=== PATIENT | male | born 1965 | race Caucasian/White ===

== ENCOUNTER 2016-08-25 08:03 | Emergency (ER) | payer OTHER ==
[~2016-08-25] VITALS: Ht 177.8 cm; Wt 68.0 kg
[~2016-08-25 08:03] MED LIST: ATROPINE 1100 DROP/5 BOTH EYES; ATROPINE 1100 DROP/5 LEFT EYE; BETIMOL 0.100 DROP/5 LEFT EYE; BUMEX2 MG PO; CALCIUM ACETAT667 MG PO; CARVEDILOL12.5 MG PO; COMBIGAN O20 DROP/5 LEFT EYE; DORZOLAMIDE HCL10 ML LEFT EYE; GARAMYCIN5 M1 BOTH EYES; GLIPIZIDE5 MG PO; LOPRESSOR50 MG PO; LOSARTAN POTASS50 MG PO; NIFEDIPINE ER60 MG PO; PRED FORTE100 DROP/5 BOTH EYES; PREDNISOLONE AC15 ML LEFT EYE; PROCARDIA XL60 MG PO; ROXICODONE5 MG PO; TYLENOL EXTRA500 MG PO; TYLENOL REGULA325 MG PO
[2016-08-25 08:38] LABS: EOSINOPHIL COUNT 0.3 K/uL (0-0.3); HEMATOCRIT 20.9 % (38.0-50.0); IMMATURE GRANULOCYTE (%) 0.1 % (0.0-0.7); IMMATURE GRANULOCYTE COUNT 0.1 K/uL; LYMPHOCYTE COUNT 1.7 K/uL (1.0-2.8); MCH 30.2 PG (29.0-34.0); MCV 88.9 FL (86-99); MEAN PLAT.VOLUME 8.6 uM^3 (9.0-12.4); MONOCYTE (%) 5.1 % (3-12); MONOCYTE COUNT 0.4 K/uL (0-0.8); NEUTROPHIL (%) 70.4 % (45-76); NEUTROPHIL COUNT 5.9 K/uL (1.8-6.4); PLATELET COUNT 312 K/uL (156-360); RBC DIS.WIDTH-CV 11.8 % (11.8-14.6); RBC DIS.WIDTH-SD 36.6 % (39-53); RED BLOOD COUNT 2.35 M/uL (4.00-5.50); WHITE BLOOD COUNT 8.4 K/uL (4.1-10.2)
[2016-08-25 08:49] LABS: CHLORIDE 104 mEq/L (99-109); POTASSIUM 5.2 mEq/L (3.7-5.4); SODIUM 143 mEq/L (136-147)
[2016-08-25 08:52] LABS: GLUCOSE 151 mg/dL (70-99)
[2016-08-25 08:53] LABS: ANION GAP 18 MEQ/L (2-14)
[2016-08-25 08:54] LABS: TOTAL BILIRUBIN 0.6 mg/dL (0.0-1.0)
[2016-08-25 08:55] LABS: ALKALINE PHOSPHATASE 72 IU/L (3-129); GFR ESTIMATE (CALCULATED) 4 mL/min/
[2016-08-25 09:13] LABS: UREA NITROGEN (BUN) 113 mg/dL (9-23)
[2016-08-25 10:58] VITALS: BP 188/88
== END 2016-08-25 11:01 | disposition home or self-care (01) ==
LOC: EME 08:03
PROVIDERS: Physician Assistant
DX: N18.6 End stage renal disease (principal); E11.9 Type 2 diabetes mellitus without complications; I10 Essential (primary) hypertension; Z99.2 Dependence on renal dialysis
CPT/HCPCS: 71020; 80053; 81003; 85025; 93005; 99281; 99284

== ENCOUNTER 2016-08-27 14:56 | Inpatient (IN) | payer OTHER ==
[~2016-08-27] VITALS: Ht 177.8 cm; Wt 68.6 kg
[2016-08-27 16:22] LABS: HEMATOCRIT 21.5 % (38.0-50.0); MCH 30.3 PG (29.0-34.0); MCHC 34.4 G/DL (30.0-36.0); MCV 88.1 FL (86-99); MEAN PLAT.VOLUME 8.5 uM^3 (9.0-12.4); PLATELET COUNT 259 K/uL (156-360); RBC DIS.WIDTH-CV 11.9 % (11.8-14.6); RBC DIS.WIDTH-SD 36.2 % (39-53); RED BLOOD COUNT 2.44 M/uL (4.00-5.50); WHITE BLOOD COUNT 8.4 K/uL (4.1-10.2)
[2016-08-27 16:33] LABS: CHLORIDE 104 mEq/L (99-109); POTASSIUM 5.8 mEq/L (3.7-5.4); SODIUM 139 mEq/L (136-147)
[2016-08-27 16:34] LABS: GLUCOSE 108 mg/dL (70-99)
[2016-08-27 16:36] LABS: ANION GAP 21 MEQ/L (2-14)
[2016-08-27 16:38] LABS: GFR ESTIMATE (CALCULATED) 3 mL/min/
[2016-08-27 16:40] LABS: UREA NITROGEN (BUN) 141 mg/dL (9-23)
[2016-08-27] MEDS ORDERED: FOLIC ACID1 MG PO (17:07)
[2016-08-27] MEDS ORDERED: BLOOD PRESSURE MED (17:09)
[2016-08-27 17:32] LABS: ADD MIUA? YES; BILIRUBIN NEGATIVE; BLOOD MODERATE; COLOR YELLOW ((YELLOW)); GLUCOSE (STRIP) 250; KETONES NEGATIVE; LEUKOCYTES NEGATIVE; NITRITE NEGATIVE; PH, URINE 6.5 (5-8); PROTEIN (STRIP) >=300; SPECIFIC GRAVITY 1.019 (1.000-1.030); UROBILINOGEN 0.2 MG/DL (0.2-1.0)
[2016-08-27 17:51] LABS: WHITE BLOOD CELLS NONE SEEN /HPF (0-5)
[2016-08-27 17:52] LABS: BACTERIA RARE /HPF; CASTS PRESENT /LPF; CRYSTALS NONE SEEN; EPITHELIAL CELLS NONE SEEN /HPF; MUCUS NONE SEEN /LPF; UCUL ADDED? NO
[2016-08-27 17:53] LABS: COARSE GRANULAR CASTS RARE /LPF
[2016-08-27 19:30] VITALS: BP 223/103
[2016-08-27 23:00] VITALS: BP 201/87
[2016-08-27 23:28] LABS: POINT-OF-CARE METER ID UU13113700
[2016-08-28 05:15] VITALS: BP 191/4
[2016-08-28 07:06] LABS: ALKALINE PHOSPHATASE 51 IU/L (3-129); ANION GAP 19 MEQ/L (2-14); CHLORIDE 103 MEQ/L (99-109); GFR ESTIMATE (CALCULATED) 3 mL/min/; GLUCOSE 119 mg/dL (70-99); POTASSIUM 4.9 MEQ/L (3.7-5.4); SAMPLE HEMOLYSIS CHECK 0; SAMPLE ICTERIC CHECK 0; SAMPLE LIPEMIA CHECK 0; SODIUM 138 MEQ/L (136-147); TOTAL BILIRUBIN 0.3 MG/DL (0.0-1.0); UREA NITROGEN (BUN) 135 mg/dL (9-23)
[2016-08-28 07:25] LABS: HEMATOCRIT 16.9 % (38.0-50.0); MCH 30.4 PG (29.0-34.0); MCHC 34.9 G/DL (30.0-36.0); MCV 87.4 FL (86-99); MEAN PLAT.VOLUME 8.8 uM^3 (9.0-12.4); PLATELET COUNT 199 K/uL (156-360); RBC DIS.WIDTH-CV 12.8 % (11.8-14.6); RBC DIS.WIDTH-SD 40.7 % (39-53); WHITE BLOOD COUNT 6.4 K/uL (4.1-10.2)
[2016-08-28 07:30] LABS: RED BLOOD COUNT 1.94 M/uL (4.00-5.50)
[2016-08-28 08:42] LABS: IRON 82 MCG/DL (35-150)
[2016-08-28 10:31] LABS: HPCA INDEX 0.29
[2016-08-28 10:32] LABS: AHBS INDEX 3.79; ANTI-HEPATITIS B CORE (TOTAL) Nonreactive; HBCT INDEX 0.45; HEPATITIS B SURFACE ANTIBODY Nonreactive
[2016-08-28 12:17] VITALS: BP 228/82
[2016-08-28 13:33] VITALS: BP 176/70
[2016-08-28 15:38] VITALS: BP 176/72
[2016-08-28 18:33] LABS: ANION GAP 13 MEQ/L (2-14); CHLORIDE 98 MEQ/L (99-109); SAMPLE HEMOLYSIS CHECK 0; SAMPLE ICTERIC CHECK 0; SAMPLE LIPEMIA CHECK 0; SODIUM 140 MEQ/L (136-147)
[2016-08-28 18:35] LABS: GFR ESTIMATE (CALCULATED) 7 mL/min/; GLUCOSE 205 mg/dL (70-99); POTASSIUM 3.7 MEQ/L (3.7-5.4); UREA NITROGEN (BUN) 46 mg/dL (9-23)
[2016-08-28 18:41] LABS: EOSINOPHIL (%) 1.2 % (0-5); EOSINOPHIL COUNT 0.1 K/uL (0-0.3); HEMATOCRIT 25.9 % (38.0-50.0); IMMATURE GRANULOCYTE (%) 0.3 % (0.0-0.7); LYMPHOCYTE COUNT 1.2 K/uL (1.0-2.8); MCH 30.3 PG (29.0-34.0); MCHC 34.7 G/DL (30.0-36.0); MCV 87.2 FL (86-99); MEAN PLAT.VOLUME 9.1 uM^3 (9.0-12.4); MONOCYTE (%) 3.7 % (3-12); MONOCYTE COUNT 0.3 K/uL (0-0.8); NEUTROPHIL (%) 78.2 % (45-76); NEUTROPHIL COUNT 5.9 K/uL (1.8-6.4); PLATELET COUNT 223 K/uL (156-360); RBC DIS.WIDTH-CV 12.9 % (11.8-14.6); RBC DIS.WIDTH-SD 40.7 % (39-53); RED BLOOD COUNT 2.97 M/uL (4.00-5.50); WHITE BLOOD COUNT 7.5 K/uL (4.1-10.2)
[2016-08-28 21:45] VITALS: BP 141/65
[2016-08-28 23:42] VITALS: BP 151/72
[2016-08-29 04:24] VITALS: BP 146/64
[2016-08-29 06:09] LABS: EOSINOPHIL (%) 2.9 % (0-5); EOSINOPHIL COUNT 0.2 K/uL (0-0.3); HEMATOCRIT 23.7 % (38.0-50.0); IMMATURE GRANULOCYTE (%) 0.1 % (0.0-0.7); LYMPHOCYTE COUNT 1.8 K/uL (1.0-2.8); MCH 30.6 PG (29.0-34.0); MCV 87.5 FL (86-99); MEAN PLAT.VOLUME 8.8 uM^3 (9.0-12.4); MONOCYTE (%) 6.2 % (3-12); MONOCYTE COUNT 0.5 K/uL (0-0.8); NEUTROPHIL (%) 66.7 % (45-76); NEUTROPHIL COUNT 5.1 K/uL (1.8-6.4); PLATELET COUNT 210 K/uL (156-360); RBC DIS.WIDTH-CV 13.2 % (11.8-14.6); RBC DIS.WIDTH-SD 42.1 % (39-53); RED BLOOD COUNT 2.71 M/uL (4.00-5.50); WHITE BLOOD COUNT 7.6 K/uL (4.1-10.2)
[2016-08-29 06:35] LABS: ANION GAP 13 MEQ/L (2-14); CHLORIDE 99 MEQ/L (99-109); GFR ESTIMATE (CALCULATED) 6 mL/min/; GLUCOSE 132 mg/dL (70-99); POTASSIUM 4.1 MEQ/L (3.7-5.4); SAMPLE HEMOLYSIS CHECK 0; SAMPLE ICTERIC CHECK 0; SAMPLE LIPEMIA CHECK 0; SODIUM 140 MEQ/L (136-147); UREA NITROGEN (BUN) 57 mg/dL (9-23)
[2016-08-29 08:01] VITALS: BP 153/70
[2016-08-29 08:11] LABS: POINT-OF-CARE METER ID UU14162513
[2016-08-29 11:29] VITALS: BP 184/82
[2016-08-29 12:45] LABS: POINT-OF-CARE METER ID UU14162513
[2016-08-29] MEDS ORDERED: NOVOLOG PE100 UNITS/ SC (12:48)
[2016-08-29] MEDS ORDERED: LABETALOL HCL200 MG PO (12:48)
[2016-08-29] MEDS ORDERED: NIFEDIPINE ER30 MG PO (12:48)
== END 2016-08-29 17:01 | disposition home health service (06) | DRG 682 ==
LOC: EME 14:56 → EDOF 17:58 → 5WEST 17:58 → EDOF 17:58 → 5WEST 19:02
PROVIDERS: Family Medicine; Hospitalist; Internal Medicine Nephrology; Nurse Practitioner Adult Health
PROC: 5A1D00Z (ICD-10-PCS; principal; 2016-08-28)
PROC: 30233N1 Transfusion of Nonautologous Red Blood Cells into Peripheral Vein, Percutaneous Approach (ICD-10-PCS; 2016-08-28)
DX: I12.0 Hypertensive chronic kidney disease with stage 5 chronic kidney disease or end stage renal disease (principal); N18.6 End stage renal disease; E87.5 Hyperkalemia; E11.21 Type 2 diabetes mellitus with diabetic nephropathy; E11.22 Type 2 diabetes mellitus with diabetic chronic kidney disease; Z99.2 Dependence on renal dialysis; D63.1 Anemia in chronic kidney disease; E11.65 Type 2 diabetes mellitus with hyperglycemia; E11.319 Type 2 diabetes mellitus with unspecified diabetic retinopathy without macular edema; H40.24 Residual stage of angle-closure glaucoma; H54.8 Legal blindness, as defined in USA
CPT/HCPCS: 80048; 80048 91; 80053; 81003; 82948; 83540; 84466; 85025; 85027; 86704; 86706; 86803; 86850; 86900; 86901; 86920; 87340; 99281; 99285; G0378; J0881; J1815; P9016

== ENCOUNTER 2016-09-28 07:43 | Day surgery (SDC) | payer OTHER ==
[~2016-09-28] VITALS: Ht 177.8 cm; Wt 63.0 kg
[~2016-09-28 07:43] MED LIST changes: +BENICAR5 MG PO; +BLOOD PRESSURE MED; +FOLIC ACID1 MG PO; +LABETALOL HCL200 MG PO; +NIFEDIPINE ER30 MG PO; +NOVOLOG PE100 UNITS/ SC; +VITAMIN D PO; +[UNRECOGNIZED DRUG - OTHER] PO
[2016-09-28 08:21] VITALS: BP 140/65
[2016-09-28 08:23] LABS: HEMATOCRIT 39.5 % (38.0-50.0); MCH 30.6 PG (29.0-34.0); MCHC 32.2 G/DL (30.0-36.0); MCV 95.2 FL (86-99); MEAN PLAT.VOLUME 8.8 uM^3 (9.0-12.4); PLATELET COUNT 246 K/uL (156-360); RBC DIS.WIDTH-CV 14.5 % (11.8-14.6); RBC DIS.WIDTH-SD 50.2 % (39-53); RED BLOOD COUNT 4.15 M/uL (4.00-5.50); WHITE BLOOD COUNT 7.2 K/uL (4.1-10.2)
[2016-09-28 08:41] LABS: ANION GAP 12 MEQ/L (2-14); CHLORIDE 89 MEQ/L (99-109); POTASSIUM 4.4 MEQ/L (3.7-5.4); SAMPLE HEMOLYSIS CHECK 0; SAMPLE ICTERIC CHECK 0; SAMPLE LIPEMIA CHECK 0; SODIUM 134 MEQ/L (136-147)
[2016-09-28 08:46] LABS: GFR ESTIMATE (CALCULATED) 8 mL/min/; GLUCOSE 147 mg/dL (70-99); UREA NITROGEN (BUN) 33 mg/dL (9-23)
[2016-09-28 09:29] LABS: METH RESISTANT S AUREUS PCR NEGATIVE (NEGATIVE)
[2016-09-28 09:31] LABS: PROBE CHECK PASS; SPECIMEN PROCESSING CONTROL PASS
[2016-09-28 11:09] LABS: POINT-OF-CARE METER ID UU13113675
[2016-09-28 11:44] VITALS: BP 173/80
[2016-09-28 12:58] VITALS: BP 137/71
== END 2016-09-28 13:06 | disposition home or self-care (01) ==
LOC: SDC 07:43
PROVIDERS: Surgery
PROC: 05V Upper Veins, Restriction (ICD-10-PCS; principal; 2016-09-28)
PROC: 02PYX3Z Removal of Infusion Device from Great Vessel, External Approach (ICD-10-PCS; principal; 2016-09-28)
DX: T82.898A Other specified complication of vascular prosthetic devices, implants and grafts, initial encounter (principal); Y83.2 Surgical operation with anastomosis, bypass or graft as the cause of abnormal reaction of the patient, or of later complication, without mention of misadventure at the time of the procedure; I12.0 Hypertensive chronic kidney disease with stage 5 chronic kidney disease or end stage renal disease; E11.22 Type 2 diabetes mellitus with diabetic chronic kidney disease; N18.6 End stage renal disease; Z99.2 Dependence on renal dialysis; E07.9 Disorder of thyroid, unspecified; H54.0 Blindness, both eyes; Z79.84 Long term (current) use of oral hypoglycemic drugs; Z87.891 Personal history of nicotine dependence; Z88.6 Allergy status to analgesic agent
CPT/HCPCS: 80048; 82948; 85027; 87641; 93005; J0131; J0690; J1170; J1644; J2250; J2405; J2720

== ENCOUNTER 2017-11-15 22:17 | Inpatient (IN) | payer OTHER ==
[~2017-11-15] VITALS: Ht 177.8 cm; Wt 77.2 kg
[2017-11-15 22:55] LABS: HEMATOCRIT 36.6 % (38.0-50.0); HEMOGLOBIN 12.5 G/DL (12.5-16.6); MCH 30.3 PG (29.0-34.0); MCHC 34.2 G/DL (30.0-36.0); MCV 88.6 FL (86-99); PLATELET COUNT 218 K/uL (156-360); RBC DIS.WIDTH-SD 41.9 % (39-53); RED BLOOD COUNT 4.13 M/uL (4.00-5.50); WHITE BLOOD COUNT 15.5 K/uL (4.1-10.2)
[2017-11-15 23:03] LABS: CHLORIDE 91 mEq/L (99-109); POTASSIUM 4.3 mEq/L (3.7-5.4); SODIUM 136 mEq/L (136-147)
[2017-11-15 23:05] LABS: GLUCOSE 219 mg/dL (70-99)
[2017-11-15 23:09] LABS: CREATININE 10.1 mg/dL (0.6-1.3); GFR ESTIMATE (CALCULATED) 6 mL/min/ (58.99-99999)
[2017-11-15 23:10] LABS: UREA NITROGEN (BUN) 51 mg/dL (9-23)
[2017-11-15 23:15] LABS: TROP-I INTERPRETATION NEGATIVE; TROPONIN-I 0.02 ng/mL (0.0-0.30)
[2017-11-15 23:24] LABS: ALBUMIN 4.5 g/dL (3.2-4.8)
[2017-11-15 23:28] LABS: TOTAL BILIRUBIN 0.8 mg/dL (0.0-1.0)
[2017-11-15 23:29] LABS: ALKALINE PHOSPHATASE 77 IU/L (3-129)
[2017-11-15 23:32] LABS: AST (GOT) 17 IU/L (2-34); DIRECT BILIRUBIN 0.2 mg/dL (0.0-0.3)
[2017-11-15 23:33] LABS: ALT (GPT) 5 IU/L (3-49); LIPASE 72 U/L (1.0-51.0)
[2017-11-16 00:07] LABS: CARBON DIOXIDE (BICARBONATE) 31.1 MEQ/L (20-31)
[2017-11-16 02:57] LABS: SERUM ETHYL ALCOHOL < 10 mg/dL
[2017-11-16 03:36] VITALS: BP 185/87
[2017-11-16 04:44] VITALS: BP 150/70
[2017-11-16 05:32] LABS: CARBON DIOXIDE (BICARBONATE) 34.9 MEQ/L (20-31)
[2017-11-16 06:02] LABS: TROP-I INTERPRETATION NEGATIVE; TROPONIN-I 0.03 ng/mL (0.0-0.30)
[2017-11-16 06:19] LABS: ALKALINE PHOSPHATASE 61 IU/L (3-129); ALT (GPT) 3 IU/L (3-49); AST (GOT) 14 IU/L (2-34); CHLORIDE 90 MEQ/L (99-109); CREATININE 10.6 MG/DL (0.6-1.3); GFR ESTIMATE (CALCULATED) 5 mL/min/ (58.99-99999); GLUCOSE 155 mg/dL (70-99); HDL CHOLESTEROL 81 MG/DL (Desirable>=40); LDL CHOLESTEROL 97 mg/dL (Desirable<100); MAGNESIUM 2.4 mg/dl (1.3-2.7); NON-HDL CHOLESTEROL 108 mg/dL (Desirable<160); PHOSPHORUS 5.4 mg/dL (2.5-4.9); POTASSIUM 4.2 MEQ/L (3.7-5.4); SODIUM 133 MEQ/L (136-147); TOTAL BILIRUBIN 0.5 MG/DL (0.0-1.0); TOTAL CHOLESTEROL 189 mg/dL (Desirable<200); TOTAL PROTEIN 6.5 G/DL (6.4-8.3); TRIGLYCERIDES 55 MG/DL (Normal: <150); UREA NITROGEN (BUN) 56 mg/dL (9-23)
[2017-11-16 08:14] VITALS: BP 118/55
[2017-11-16 10:06] LABS: HEMOGLOBIN A1c (GLYCOHEMOGLOB) 7.8 % (Below 5.7)
[2017-11-16 11:16] LABS: HEMATOCRIT 34.1 % (38.0-50.0); HEMOGLOBIN 11.3 G/DL (12.5-16.6); MCH 29.5 PG (29.0-34.0); MCHC 33.1 G/DL (30.0-36.0); PLATELET COUNT 219 K/uL (156-360); RBC DIS.WIDTH-CV 13.2 % (11.8-14.6); RBC DIS.WIDTH-SD 42.7 % (39-53); RED BLOOD COUNT 3.83 M/uL (4.00-5.50); WHITE BLOOD COUNT 10.8 K/uL (4.1-10.2)
[2017-11-16 11:56] LABS: TROP-I INTERPRETATION NEGATIVE; TROPONIN-I 0.02 ng/mL (0.0-0.30)
[2017-11-16] MEDS ORDERED: PROCARDIA XL60 MG PO ×2 (12:46)
[2017-11-16] MEDS ORDERED: RENVELA800 MG PO (12:46)
[2017-11-16] MEDS ORDERED: DIALYVITE TABL1 EACH PO (12:46)
[2017-11-16] MEDS ORDERED: LABETALOL HCL100 MG PO (12:47)
[2017-11-16 19:16] VITALS: BP 141/66
[2017-11-17 00:05] VITALS: BP 164/74
[2017-11-17 01:05] LABS: APPEARANCE SL.HAZY ((CLEAR)); BILIRUBIN NEGATIVE; BLOOD NEGATIVE; COLOR YELLOW ((YELLOW)); GLUCOSE (STRIP) >=500; KETONES NEGATIVE; LEUKOCYTES NEGATIVE; NITRITE NEGATIVE; PROTEIN (STRIP) >=500; SPECIFIC GRAVITY 1.017 (1.000-1.030); UROBILINOGEN 0.2 MG/DL (0.2-1.0)
[2017-11-17 01:09] LABS: BACTERIA RARE /HPF; EPITHELIAL CELLS RARE /HPF; HYALINE CASTS 0-5 /LPF; MUCUS NONE SEEN /LPF; RED BLOOD CELLS 0-5 /HPF (0-5); UCUL ADDED? NO; WHITE BLOOD CELLS 0-5 /HPF (0-5)
[2017-11-17 02:33] LABS: BENZODIAZEPINES, URINE SCREEN Negative (200 ng/mL)
[2017-11-17 04:00] VITALS: BP 176/76
[2017-11-17 06:08] LABS: CHLORIDE 93 MEQ/L (99-109); GFR ESTIMATE (CALCULATED) 8 mL/min/ (58.99-99999); GLUCOSE 145 mg/dL (70-99); POTASSIUM 4.4 MEQ/L (3.7-5.4); SODIUM 137 MEQ/L (136-147); UREA NITROGEN (BUN) 37 mg/dL (9-23)
[2017-11-17 06:12] LABS: CREATININE 7.4 MG/DL (0.6-1.3)
[2017-11-17 08:00] VITALS: BP 144/67
[2017-11-17 12:23] VITALS: BP 150/70
[2017-11-17 16:00] VITALS: BP 193/84
[2017-11-17 20:05] VITALS: BP 148/65
[2017-11-18] VITALS: BP 168/79
[2017-11-18 04:45] VITALS: BP 167/78
[2017-11-18 09:22] VITALS: BP 179/77
[2017-11-18] MEDS ORDERED: LABETALOL HCL200 MG PO (11:50)
[2017-11-18] MEDS ORDERED: FLUOROMETHOLONE15 ML BOTH EYES (11:52)
[2017-11-18] MEDS ORDERED: ACETAZOLAMIDE500 MG PO (11:52)
[2017-11-18] MEDS ORDERED: TIMOLOL MALEATE15 M1 BOTH EYES (11:53)
[2017-11-18] MEDS ORDERED: BRIMONIDINE TAR10 ML BOTH EYES (11:53)
== END 2017-11-18 12:30 | disposition home or self-care (01) | DRG 124 ==
LOC: EME → EDBD 22:17 → EME 22:17 → EDOF 11-16 01:32 → 4EAST 11-16 01:32 → ENRESERV 11-16 01:37 → 4EAST 11-16 03:11 → ENRESERV 11-16 08:21 → CANRESERV 11-16 08:52 → 4EAST 11-17 10:01 → ENPENDDIS 11-18 → 4EAST 11-18 12:30
PROVIDERS: Emergency Medicine; Hospitalist; Physician Assistant Medical
PROC: 5A1D70Z Performance of Urinary Filtration, Intermittent, Less than 6 Hours Per Day (ICD-10-PCS; principal; 2017-11-16)
DX: H40.213 Acute angle-closure glaucoma, bilateral (principal); N18.6 End stage renal disease; I16.0 Hypertensive urgency; I12.0 Hypertensive chronic kidney disease with stage 5 chronic kidney disease or end stage renal disease; E11.21 Type 2 diabetes mellitus with diabetic nephropathy; E11.22 Type 2 diabetes mellitus with diabetic chronic kidney disease; E11.3599 Type 2 diabetes mellitus with proliferative diabetic retinopathy without macular edema, unspecified eye; E11.40 Type 2 diabetes mellitus with diabetic neuropathy, unspecified; E11.65 Type 2 diabetes mellitus with hyperglycemia; R94.31 Abnormal electrocardiogram [ECG] [EKG]; R07.9 Chest pain, unspecified; D72.829 Elevated white blood cell count, unspecified; T86.841 Corneal transplant failure; Y83.4 Other reconstructive surgery as the cause of abnormal reaction of the patient, or of later complication, without mention of misadventure at the time of the procedure; H54.8 Legal blindness, as defined in USA; N25.81 Secondary hyperparathyroidism of renal origin; E55.9 Vitamin D deficiency, unspecified; Z99.2 Dependence on renal dialysis; Z91.14 Patient's other noncompliance with medication regimen; Z87.891 Personal history of nicotine dependence; Z83.3 Family history of diabetes mellitus
CPT/HCPCS: 70450; 71046; 74170; 76770; 80048; 80053; 80061; 80076; 80306 90; 81003; 82010; 82803; 82948; 83036; 83605; 83690; 83735; 84100; 84443; 84484; 85027; 87641; 93005; 93975; 99281; 99285; G0480; J0360; J0780; J1120; J1200; J1644; J1815; J2060

== ENCOUNTER 2018-01-03 00:20 | Inpatient (IN) | payer OTHER ==
[2018-01-03] VITALS (13 sets, daily range): BP systolic 117–210; BP diastolic 55–91
[~2018-01-03] VITALS: Ht 152.4 cm; Wt 75.0 kg
[~2018-01-03 00:20] MED LIST changes: +ACETAZOLAMIDE500 MG PO; +BRIMONIDINE TAR10 ML BOTH EYES; +DIALYVITE TABL1 EACH PO; +FLUOROMETHOLONE15 ML BOTH EYES; +LABETALOL HCL100 MG PO; +RENVELA800 MG PO; +TIMOLOL MALEATE15 M1 BOTH EYES
[2018-01-03 00:46] LABS: HEMOGLOBIN 9.5 G/DL (12.5-16.6); MCH 31.8 PG (29.0-34.0); MCHC 35.2 G/DL (30.0-36.0); MCV 90.3 FL (86-99); PLATELET COUNT 166 K/uL (156-360); RBC DIS.WIDTH-CV 13.1 % (11.8-14.6); RBC DIS.WIDTH-SD 42.7 % (39-53); RED BLOOD COUNT 2.99 M/uL (4.00-5.50); WHITE BLOOD COUNT 6.7 K/uL (4.1-10.2)
[2018-01-03 00:57] LABS: CHLORIDE 95 mEq/L (99-109); SODIUM 140 mEq/L (136-147)
[2018-01-03 00:58] LABS: PTT 34.2 SEC (25-37)
[2018-01-03 00:59] LABS: GLUCOSE 132 mg/dL (70-99)
[2018-01-03 01:03] LABS: CREATININE 6.3 mg/dL (0.6-1.3); GFR ESTIMATE (CALCULATED) 10 mL/min/ (58.99-99999)
[2018-01-03 01:04] LABS: UREA NITROGEN (BUN) 25 mg/dL (9-23)
[2018-01-03 01:08] LABS: TROP-I INTERPRETATION NEGATIVE; TROPONIN-I 0.02 ng/mL (0.0-0.30)
[2018-01-03 07:44] LABS: TROP-I INTERPRETATION NEGATIVE; TROPONIN-I 0.02 ng/mL (0.0-0.30)
[2018-01-03 12:41] LABS: TROP-I INTERPRETATION NEGATIVE; TROPONIN-I 0.02 ng/mL (0.0-0.30)
[2018-01-03] MEDS ORDERED: PROCARDIA XL60 MG PO (12:43)
[2018-01-03] MEDS ORDERED: NOVOLOG PE100 UNITS/ SC (12:44)
[2018-01-03] MEDS ORDERED: SIMBRINZA 1%-0.28 ML RIGHT EYE (12:44)
[2018-01-03] MEDS ORDERED: RENVELA800 MG PO (12:45)
[2018-01-03] MEDS ORDERED: TIMOPTIC-0100 DROP/5 RIGHT EYE (12:46)
[2018-01-03] MEDS ORDERED: PRED FORTE100 DROP/5 RIGHT EYE (12:46)
[2018-01-03] MEDS ORDERED: METHAZOLAMIDE50 MG PO (12:47)
[2018-01-03] MEDS ORDERED: TYLENOL REGULA325 MG PO (12:47)
[2018-01-03] MEDS ORDERED: TRAVATAN Z5 ML RIGHT EYE (12:47)
[2018-01-03] MEDS ORDERED: ATROPINE 1100 DROP/5 LEFT EYE (12:48)
[2018-01-04 04:35] VITALS: BP 147/69
[2018-01-04 06:29] LABS: HEMATOCRIT 25.8 % (38.0-50.0); HEMOGLOBIN 8.4 G/DL (12.5-16.6); MCH 29.8 PG (29.0-34.0); MCHC 32.6 G/DL (30.0-36.0); MCV 91.5 FL (86-99); PLATELET COUNT 177 K/uL (156-360); RBC DIS.WIDTH-CV 13.2 % (11.8-14.6); RBC DIS.WIDTH-SD 43.5 % (39-53); RED BLOOD COUNT 2.82 M/uL (4.00-5.50); WHITE BLOOD COUNT 5.9 K/uL (4.1-10.2)
[2018-01-04 06:49] LABS: CHLORIDE 92 MEQ/L (99-109); GFR ESTIMATE (CALCULATED) 7 mL/min/ (58.99-99999); GLUCOSE 127 mg/dL (70-99); POTASSIUM 5.6 MEQ/L (3.7-5.4); SODIUM 136 MEQ/L (136-147)
[2018-01-04 06:55] LABS: CREATININE 8.6 MG/DL (0.6-1.3); UREA NITROGEN (BUN) 38 mg/dL (9-23)
[2018-01-04 07:10] VITALS: BP 132/63
[2018-01-04] MEDS ORDERED: LISINOPRIL40 MG PO (12:37)
[2018-01-04] MEDS ORDERED: LABETALOL HCL200 MG PO (12:37)
== END 2018-01-04 15:02 | disposition home health service (06) | DRG 304 ==
LOC: EME 00:20 → EDOF 04:27 → ENRESERV 04:37 → 4SOUTH 05:10 → ENRESERV 15:44 → CANRESERV 16:05 → 4SOUTH 16:09
PROVIDERS: Emergency Medicine; Hospitalist
PROC: 5A1D70Z Performance of Urinary Filtration, Intermittent, Less than 6 Hours Per Day (ICD-10-PCS; principal; 2018-01-03)
DX: I16.0 Hypertensive urgency (principal); N18.6 End stage renal disease; E87.2 Acidosis; N25.81 Secondary hyperparathyroidism of renal origin; J98.11 Atelectasis; I13.11 Hypertensive heart and chronic kidney disease without heart failure, with stage 5 chronic kidney disease, or end stage renal disease; D63.1 Anemia in chronic kidney disease; E11.22 Type 2 diabetes mellitus with diabetic chronic kidney disease; E11.3599 Type 2 diabetes mellitus with proliferative diabetic retinopathy without macular edema, unspecified eye; E11.40 Type 2 diabetes mellitus with diabetic neuropathy, unspecified; E78.5 Hyperlipidemia, unspecified; F01.50 Vascular dementia, unspecified severity, without behavioral disturbance, psychotic disturbance, mood disturbance, and anxiety; H40.9 Unspecified glaucoma; H54.8 Legal blindness, as defined in USA; I70.0 Atherosclerosis of aorta; E55.9 Vitamin D deficiency, unspecified; Z60.2 Problems related to living alone; R94.31 Abnormal electrocardiogram [ECG] [EKG]; I67.2 Cerebral atherosclerosis; Z87.891 Personal history of nicotine dependence; Z83.3 Family history of diabetes mellitus; Z94.7 Corneal transplant status; Z99.2 Dependence on renal dialysis; Z88.6 Allergy status to analgesic agent
CPT/HCPCS: 71045; 71250; 78582; 80048; 82948; 83880; 84484; 85027; 85610; 85730; 93005; 99281; 99285; A9540; A9567; J0360; J1644; J2405